=== PATIENT | female | born 1940 | race Caucasian/White ===

== ENCOUNTER 2017-10-24 08:11 | Inpatient (IN) | payer MEDICARE ==
[2017-10-23 12:34] VITALS: BMI 25.0
[2017-10-24] MEDS ORDERED: Midazolam 2 MG/2 ML VIAL ONE (09:58)
[2017-10-24] MEDS ORDERED: Iodixanol 320 MG/ML 100 ML BOTTLE IV ONE (09:59)
[2017-10-24] MEDS ORDERED: DOPamine 400mg/250ml D5W 400 MG/250 ML BAG IV ONE (11:37)
[2017-10-24] MEDS ORDERED: Sodium Chloride 0.9% 1,000 ML IV SCH (11:45)
[2017-10-24] MEDS ORDERED: DOPamine 400mg/250ml D5W 400 MG/250 ML BAG IV PRN (12:00)
[2017-10-24] MEDS: (Novolin R) Insulin Human Regular 100 units/ml vial SC SCH ×2 (17:35→22:00)
[2017-10-24] MEDS ORDERED: Sodium Chloride 0.9% 1,000 ML IV ONE (20:09)
--- NOTE | 2017-10-24 20:24 | CP.PCM.HP ---
History of Present Illness - History of Present Illness History of Present Illness: CC: low BP 77 y/o female with HTN, NIDDM, all rhinitis. Patient had cardiac cath and became bradycardic/ hypotensive (SBP 70's). Patient admitted c/o persistent Bradycardia. Present on Admission - Present on Admission Any Indicators Present on Admission: Yes History of DVT/PE: No History of Uncontrolled Diabetes: No Urinary Catheter: No Review of Systems - Review of Systems Systems not reviewed;Unavailable: Acuity of Condition - Constitutional Constitutional: absent: Headache - EENT Eyes: absent: Blurred Vision, Loss of Peripheral Vision, Requires Corrective Lenses, Sees Flashes, Loss of Vision Ears: absent: Ear Discharge Nose/Mouth/Throat: Nasal Congestion, Post Nasal Drip. absent: Change in Voice, Dysphagia, Halitosis, Hoarsness, Sore Throat - Cardiovascular Cardiovascular: Dyspnea on Exertion, Slow Heart Rate. absent: Chest Pain, Diaphoresis, Edema, Leg Edema, Orthopnea, Palpitations, Pedal Edema, Radiating Pain - Respiratory Respiratory: absent: Cough, Dyspnea, Hemoptysis, Chest Congestion, Pain with Coughing - Gastrointestinal Gastrointestinal: absent: Abdominal Pain, Coffee Ground Emesis, Dyspepsia, Loose Stools, Nausea, Vomiting - Musculoskeletal Musculoskeletal: Abnormal Gait. absent: Atrophy, Back Pain, Loss of Height, Numbness Past Patient History - Infectious Disease Hx of Infectious Diseases: None - Past Medical History & Family History Past Medical History?: Yes - Past Social History Smoking Status: Never Smoked - CARDIAC Hx Cardiac Disorders: Yes Hx Angina: Yes Hx Hypercholesterolemia: Yes Hx Hypertension: Yes - PULMONARY Hx Respiratory Disorders: No - NEUROLOGICAL Hx Neurological Disorder: No - HEENT Hx HEENT Problems: Yes Hx Cataracts: Yes - RENAL Hx Chronic Kidney Disease: No - ENDOCRINE/METABOLIC Hx Endocrine Disorders: Yes Hx Diabetes Mellitus Type 2: Yes - HEMATOLOGICAL/ONCOLOGICAL Hx Blood Disorders: Yes Other/Comment: PT STATES HX BLEEDING AFTER LAST CARDIAC CATH - INTEGUMENTARY Hx Dermatological Problems: No - MUSCULOSKELETAL/RHEUMATOLOGICAL Hx Arthritis: Yes Hx Falls: No Hx Gout: Yes - GASTROINTESTINAL Hx Gastrointestinal Disorders: No - GENITOURINARY/GYNECOLOGICAL Hx Genitourinary Disorders: No - PSYCHIATRIC Hx Psychophysiologic Disorder: No - SURGICAL HISTORY Hx Surgeries: Yes Hx Cardiac Catheterization: Yes (1997) - ANESTHESIA Hx Anesthesia: Yes Hx Anesthesia Reactions: No Hx Malignant Hyperthermia: No Meds Allergies/Adverse Reactions: Allergies Allergy/AdvReac Type Severity Reaction Status Date / Time No Known Allergies Allergy Verified 10/23/17 12:31 Physical Exam - Constitutional Appears: No Acute Distress - Eye Exam Eye Exam: Normal appearance - ENT Exam ENT Exam: Mucous Membranes Moist - Neck Exam Neck exam: Negative for: Full Rom, Lymphadenopathy, Normal Inspection - Respiratory Exam Respiratory Exam: Clear to Auscultation Bilateral. absent: Rales, Rhonchi, Wheezes - Cardiovascular Exam Cardiovascular Exam: REGULAR RHYTHM, +S1, +S2. absent: Gallop, JVD, Rubs - GI/Abdominal Exam GI & Abdominal Exam: Soft. absent: Pulsatile Mass, Tenderness - Extremities Exam Extremities exam: Positive for: calf tenderness, full ROM, normal capillary refill. Negative for: joint swelling, pedal edema Results - Vital Signs Recent Vital Signs: Last Vital Signs Temp Pulse 54 L 10/24/17 14:00 Resp 12 10/24/17 14:00 BP 133/52 L 10/24/17 14:00 Pulse Ox 100 10/24/17 14:00 - Labs Labs: Laboratory Results - last 24 hr 10/24/17 17:28 POC Glucose (mg/dL) 157 H Assessment & Plan - Assessment and Plan (Free Text) Assessment: Bradycardia w/ hypotension CAD, NIDDM On ICU monitoring, check labs Supportive care
[2017-10-25 06:31] LABS: HEMOGLOBIN 9.8 g/dL (11.0-16.0); MEAN CELL VOLUME 87.3 fL (81.0-99.0); MEAN CORPUSCULAR HEMOGLOBIN 29.9 pg (27.0-31.0); MEAN CORPUSCULAR HGB CONC 34.3 g/dL (33.0-37.0); MEAN PLATELET VOLUME 9.9 fL (7.2-11.7); RBC 3.28 Mil/uL (3.80-5.20); RED CELL DISTRIBUTION WIDTH 14.3 % (11.5-14.5); WHITE BLOOD COUNT 9.8 K/uL (4.8-10.8)
[2017-10-25 07:04] LABS: ALBUMIN 3.8 g/dL (3.5-5.0); CALCIUM 9.5 mg/dl (8.6-10.4); MAGNESIUM 2.3 mg/dL (1.6-2.3)
[2017-10-25] MEDS: (Novolin R) Insulin Human Regular 100 units/ml vial SC SCH ×4 (08:18→21:44)
[2017-10-25] MEDS: Enoxaparin 30 mg Syringe SC SCH (10:08)
--- NOTE | 2017-10-25 14:30 | CP.PCM.PN ---
Subjective - Date & Time of Evaluation Date of Evaluation: 10/25/17 Time of Evaluation: 14:27 - Subjective Subjective: S: Feels better. NO fever. Objective - Vital Signs/Intake and Output Vital Signs (last 24 hours): Temp Pulse Resp BP Pulse Ox 98.2 F 36 L 14 166/78 H 100 10/24/17 19:00 10/25/17 08:03 10/25/17 08:03 10/25/17 08:03 10/25/17 08:03 Intake and Output: 10/25/17 10/25/17 06:59 18:59 Intake Total 1580 190 Output Total 1300 300 Balance 280 -110 - Medications Medications: Current Medications Enoxaparin Sodium (Lovenox) 30 mg SC DAILY [facility] Last Admin: 10/25/17 10:08 Dose: 30 mg Famotidine (Pepcid) 20 mg PO DAILY [facility] Last Admin: 10/25/17 10:08 Dose: 20 mg Insulin Human Regular (Novolin R) 0 unit SC ACHS [facility] PRN Reason: Protocol Last Admin: 10/25/17 12:14 Dose: Not Given - Labs Labs: 10/25/17 06:21 10/25/17 06:22 - Constitutional Appears: Non-toxic - Head Exam Head Exam: NORMAL INSPECTION - Eye Exam Eye Exam: Normal appearance - ENT Exam ENT Exam: Mucous Membranes Dry - Neck Exam Neck Exam: Normal Inspection - Respiratory Exam Respiratory Exam: NORMAL BREATHING PATTERN - Cardiovascular Exam Cardiovascular Exam: REGULAR RHYTHM - GI/Abdominal Exam GI & Abdominal Exam: Soft - Rectal Exam Rectal Exam: Deferred - Extremities Exam Extremities Exam: Normal Inspection - Neurological Exam Neurological Exam: Alert Assessment and Plan (1) Bradycardia Status: Acute (2) CAD (coronary artery disease) Status: Acute (3) Diabetes Status: Chronic (4) HTN (hypertension) Status: Chronic - Assessment and Plan (Free Text) Assessment: A/p: Spoke with Dr. Baugh for pacemaker insertion. Continue medications.
--- NOTE | 2017-10-26 05:39 | CARDCATH ---
PROCEDURE DATE: 10/24/2017 PROCEDURES: 1. Left heart catheterization. 2. Coronary angiogram. CLINICAL INDICATIONS: 1. Chest pain. 2. Abnormal stress test. 3. Symptomatic bradycardia. 4. Dizziness. 5. Hypertension. REFERRING PHYSICIAN: Richard Quiroz MD PERFORMING PHYSICIAN: Kiel Baugh MD PROCEDURE: After informed consent, the patient was prepped and draped in the usual sterile fashion. A 2% lidocaine was given in the right groin for local anesthesia. Using micropuncture technique, a 6-Guamanian sheath was introduced into right common femoral artery. A 6-Guamanian JL4 diagnostic catheter engaged into left main coronary artery. Contrast injected and left coronary angiogram was performed. JR4 6-Guamanian diagnostic catheter crossed into left ventricle across the aortic valve. LV end-diastolic pressure measured. Contrast injected and LV angiogram was performed. The catheter was pulled back across the aortic valve. Gradient across the aortic valve was measured. Therefore, diagnostic catheter engaged in the right coronary artery. Contrast injected and right coronary angiogram was performed. Radiological supervision and radiological interpretation of the left heart catheterization and coronary angiogram was done. The patient tolerated the procedure well. FINDINGS: 1. Left main coronary artery is patent. 2. Proximal, distal LAD, and diagonal branches are patent. 3. Mid LAD has a nonobstructive 50% stenosis. 4. Proximal circumflex has a 60% nonocclusive stenosis. Distal circumflex in the obtuse marginal branches are patent. 5. Right coronary artery is dominant and patent. 6. Proximal right coronary artery has a 40% stenosis. 7. LV ejection fraction is approximately 60%. No wall motion abnormalities noted. EDP is 14. ASSESSMENT: 1. Nonobstructive coronaries. 2. Normal LV systolic function. RECOMMENDATIONS: Pacemaker evaluation for severe bradycardia. Kiel Baugh MD
[2017-10-26 06:35] LABS: BASO # 0.1 K/uL (0.0-0.2); BASO % 1.1 % (0.0-2.0); EOS # 0.3 K/uL (0.0-0.7); EOS % 4.1 % (0.0-4.0); LYMPH # 1.3 K/uL (1.0-4.3); LYMPH % 16.9 % (20.0-40.0); MEAN CORPUSCULAR HEMOGLOBIN 29.7 pg (27.0-31.0); MEAN CORPUSCULAR HGB CONC 34.1 g/dL (33.0-37.0); MEAN PLATELET VOLUME 10.1 fL (7.2-11.7); MONO # 0.5 K/uL (0.0-0.8); MONO % 6.5 % (0.0-10.0); NEUT # 5.6 K/uL (1.8-7.0); NEUT % 71.4 % (50.0-75.0); RBC 3.39 Mil/uL (3.80-5.20); RED CELL DISTRIBUTION WIDTH 14.6 % (11.5-14.5); WHITE BLOOD COUNT 7.9 K/uL (4.8-10.8)
[2017-10-26 06:43] LABS: ALBUMIN 3.6 g/dL (3.5-5.0); CALCIUM 9.2 mg/dl (8.6-10.4); MAGNESIUM 2.2 mg/dL (1.6-2.3)
--- NOTE | 2017-10-26 09:54 | CP.PCM.PN ---
Subjective - Date & Time of Evaluation Date of Evaluation: 10/26/17 Time of Evaluation: 09:51 - Subjective Subjective: Chart reviewed Objective - Vital Signs/Intake and Output Vital Signs (last 24 hours): Temp Pulse Resp BP Pulse Ox 98.6 F 39 L 15 160/40 H 100 10/26/17 08:00 10/26/17 08:03 10/26/17 08:03 10/26/17 08:03 10/26/17 08:03 Intake and Output: 10/26/17 10/26/17 06:59 18:59 Intake Total 100 Output Total 750 Balance -650 - Medications Medications: Current Medications Enoxaparin Sodium (Lovenox) 30 mg SC DAILY [facility] Last Admin: 10/25/17 10:08 Dose: 30 mg Famotidine (Pepcid) 20 mg PO DAILY [facility] Last Admin: 10/25/17 10:08 Dose: 20 mg Insulin Human Regular (Novolin R) 0 unit SC ACHS [facility] PRN Reason: Protocol Last Admin: 10/25/17 21:44 Dose: Not Given - Labs Labs: 10/26/17 06:21 10/26/17 06:21 Assessment and Plan - Assessment and Plan (Free Text) Assessment: This patient has had symptomatic episodes of bradyarrhythmia likely sinus There are no obvious clinical reversible factors Currently without hemodynamic instability In absnece of an imperative to use an AV enriqueta magalie (heart failure or coronary disease) indicatins would be directed by symptoms persistence of severe bradycardia during wake hours Plan Thyroid function Monitor x 24 hours Possible Pacemaker tomorrow if indications remain
[2017-10-26] MEDS: (Novolin R) Insulin Human Regular 100 units/ml vial SC SCH ×4 (10:13→22:16)
[2017-10-26] MEDS: Enoxaparin 30 mg Syringe SC SCH (10:15)
--- NOTE | 2017-10-26 11:08 | CP.PCM.PN ---
Subjective - Date & Time of Evaluation Date of Evaluation: 10/26/17 Time of Evaluation: 11:06 - Subjective Subjective: S: Feels ave. No fever. Objective - Vital Signs/Intake and Output Vital Signs (last 24 hours): Temp Pulse Resp BP Pulse Ox 98.6 F 42 L 19 163/47 H 100 10/26/17 08:00 10/26/17 10:16 10/26/17 10:16 10/26/17 10:16 10/26/17 10:16 Intake and Output: 10/26/17 10/26/17 06:59 18:59 Intake Total 100 200 Output Total 750 400 Balance -650 -200 - Medications Medications: Current Medications Enoxaparin Sodium (Lovenox) 30 mg SC DAILY [facility] Last Admin: 10/26/17 10:15 Dose: 30 mg Famotidine (Pepcid) 20 mg PO DAILY [facility] Last Admin: 10/26/17 10:15 Dose: 20 mg Insulin Human Regular (Novolin R) 0 unit SC ACHS [facility] PRN Reason: Protocol Last Admin: 10/26/17 10:13 Dose: Not Given - Labs Labs: 10/26/17 06:21 10/26/17 06:21 - Constitutional Appears: No Acute Distress - Head Exam Head Exam: NORMAL INSPECTION - Eye Exam Eye Exam: Normal appearance - ENT Exam ENT Exam: Normal Exam - Neck Exam Neck Exam: Normal Inspection - Respiratory Exam Respiratory Exam: NORMAL BREATHING PATTERN - Cardiovascular Exam Cardiovascular Exam: REGULAR RHYTHM - GI/Abdominal Exam GI & Abdominal Exam: Soft - Rectal Exam Rectal Exam: Deferred - Extremities Exam Extremities Exam: absent: Pedal Edema - Neurological Exam Neurological Exam: Alert Assessment and Plan (1) Bradycardia Status: Acute (2) CAD (coronary artery disease) Status: Acute (3) Diabetes Status: Chronic (4) HTN (hypertension) Status: Chronic - Assessment and Plan (Free Text) Assessment: A/P: Continue medications. For pacemaker insertion tomorrow
--- NOTE | 2017-10-26 23:10 | CP.PCM.PN ---
Subjective - Date & Time of Evaluation Date of Evaluation: 10/26/17 Time of Evaluation: 19:50 - Subjective Subjective: Patient seen and evaluated Persistent symptomtic bradycardia with no reversible causes Due to CAD patient may likely need b blockers in the near future Dr. Cheek likely to do PPM tomorrow Objective - Vital Signs/Intake and Output Vital Signs (last 24 hours): Temp Pulse Resp BP Pulse Ox 98.9 F 41 L 21 169/52 H 97 10/26/17 20:00 10/26/17 21:00 10/26/17 21:00 10/26/17 21:03 10/26/17 21:00 Intake and Output: 10/26/17 10/27/17 18:59 06:59 Intake Total 400 Output Total 700 Balance -300 - Medications Medications: Current Medications Enoxaparin Sodium (Lovenox) 30 mg SC DAILY [facility] Last Admin: 10/26/17 10:15 Dose: 30 mg Famotidine (Pepcid) 20 mg PO DAILY [facility] Last Admin: 10/26/17 10:15 Dose: 20 mg Insulin Human Regular (Novolin R) 0 unit SC [facility] PRN Reason: Protocol Last Admin: 10/26/17 22:16 Dose: Not Given - Labs Labs: 10/26/17 06:21 10/26/17 06:21
[2017-10-27 06:28] LABS: PROTHROMBIN TIME 10.9 SECONDS (9.7-12.2)
[2017-10-27 06:33] LABS: BASO # 0.1 K/uL (0.0-0.2); BASO % 1.4 % (0.0-2.0); EOS # 0.4 K/uL (0.0-0.7); EOS % 4.2 % (0.0-4.0); HEMOGLOBIN 9.4 g/dL (11.0-16.0); LYMPH # 1.4 K/uL (1.0-4.3); LYMPH % 13.8 % (20.0-40.0); MEAN CELL VOLUME 87.7 fL (81.0-99.0); MEAN CORPUSCULAR HEMOGLOBIN 29.7 pg (27.0-31.0); MEAN CORPUSCULAR HGB CONC 33.8 g/dL (33.0-37.0); MEAN PLATELET VOLUME 10.4 fL (7.2-11.7); MONO # 0.8 K/uL (0.0-0.8); MONO % 7.8 % (0.0-10.0); NEUT # 7.3 K/uL (1.8-7.0); NEUT % 72.8 % (50.0-75.0); NRBC % 0.1 % (0.0-2.0); RBC 3.16 Mil/uL (3.80-5.20); RED CELL DISTRIBUTION WIDTH 14.5 % (11.5-14.5)
[2017-10-27 06:38] LABS: ALBUMIN 3.6 g/dL (3.5-5.0); CALCIUM 9.2 mg/dl (8.6-10.4)
[2017-10-27] MEDS: (Novolin R) Insulin Human Regular 100 units/ml vial SC SCH ×5 (07:30→21:13)
--- NOTE | 2017-10-27 09:08 | CP.PCM.PN ---
Subjective - Date & Time of Evaluation Date of Evaluation: 10/27/17 Time of Evaluation: 08:25 - Subjective Subjective: Pt no CP,no SOB, no edema, co cough; HR at low 40's but in bed all the time Objective - Vital Signs/Intake and Output Vital Signs (last 24 hours): Temp Pulse Resp BP Pulse Ox 97.6 F 39 L 14 171/61 H 100 10/27/17 08:00 10/27/17 08:02 10/27/17 08:02 10/27/17 08:02 10/27/17 08:02 Intake and Output: 10/27/17 10/27/17 06:59 18:59 Intake Total 240 Output Total 600 Balance -360 - Medications Medications: Current Medications Enoxaparin Sodium (Lovenox) 30 mg SC DAILY [facility] Last Admin: 10/26/17 10:15 Dose: 30 mg Famotidine (Pepcid) 20 mg PO DAILY [facility] Last Admin: 10/26/17 10:15 Dose: 20 mg Insulin Human Regular (Novolin R) 0 unit SC ACHS [facility] PRN Reason: Protocol Last Admin: 10/26/17 22:16 Dose: Not Given - Labs Labs: 10/27/17 06:17 10/27/17 06:13 PT 10.9 SECONDS (9.7-12.2) 10/27/17 06:17 INR 1.0 10/27/17 06:17 APTT 35 SECONDS (21-34) H 10/27/17 06:17 - Constitutional Appears: No Acute Distress - Eye Exam Eye Exam: Normal appearance - ENT Exam ENT Exam: Mucous Membranes Moist - Neck Exam Neck Exam: Full ROM. absent: Lymphadenopathy - Respiratory Exam Respiratory Exam: Clear to Ausculation Bilateral. absent: Rales, Rhonchi, Wheezes - Cardiovascular Exam Cardiovascular Exam: +S1, +S2. absent: Gallop, REGULAR RHYTHM - GI/Abdominal Exam GI & Abdominal Exam: Soft. absent: Tenderness - Extremities Exam Extremities Exam: absent: Calf Tenderness, Joint Swelling, Pedal Edema Assessment and Plan - Assessment and Plan (Free Text) Assessment: HTN, NIDDM, Bradycardia For pacemaker placement Cont supportive care
[2017-10-27] MEDS: Enoxaparin 30 mg Syringe SC SCH (10:18)
--- NOTE | 2017-10-27 11:52 | CP.CCUPN ---
<Parvez Serrano - Last Filed: 10/27/17 17:29> CCU Subjective - Physician Review Events Since Last Encounter (Free Text): 10/27/17 11:45 Patient seen and examined at bedside. Per nursing no acute events occurred overnight. Critical Care Time Spent (in minutes): 45 CCU Objective - Vital Signs / Intake & Output Vital Signs (Last 4 hours): Vital Signs Temp Pulse Resp BP Pulse Ox 10/27/17 08:02 39 L 14 171/61 H 100 10/27/17 08:00 97.6 F 40 L 18 162/70 H 100 Intake and Output (Last 8hrs): Intake & Output 10/26/17 10/27/17 10/27/17 22:59 06:59 14:59 Intake Total 440 Output Total 400 400 Balance 40 -400 Weight 133 lb 7 oz Intake: Oral 440 Output: Urine 400 400 Urine, Voided 400 400 Other: # Bowel Movements 0 1 - Physical Exam Head: Positive for: Atraumatic, Normocephalic Pupils: Positive for: PERRL Extroacular Muscles: Positive for: EOMI Conjunctiva: Positive for: Normal Respiratory/Chest: Positive for: Clear to Auscultation, Good Air Exchange Cardiovascular: Positive for: Regular Rate and Rhythm, Normal S1, S2 Abdomen: Positive for: Normal Bowel Sounds Upper Extremity: Positive for: Normal Inspection Lower Extremity: Positive for: Normal Inspection Neurological: Positive for: CN II-XII Intact Skin: Positive for: Dry, Normal Color Psychiatric: Positive for: Alert, Normal Concentration - Medications Active Medications: Active Medications Generic Name Dose Route Start Last Admin Trade Name Dorinda PRN Reason Stop Dose Admin Enoxaparin Sodium 30 mg 10/25/17 10:00 10/27/17 10:18 Lovenox SC Not Given DAILY [facility] Insulin Human Regular 0 unit 10/24/17 16:30 10/27/17 07:30 Novolin R SC Not Given [facility] Protocol Pantoprazole Sodium 40 mg 10/27/17 10:00 Protonix Inj IVP DAILY [facility] - Patient Studies Lab Studies: Microbiology Studies 10/24/17 20:08 MRSA Culture (Admit) - Final [facility] Lab Studies 10/27/17 10/27/17 10/27/17 Range/Units 06:17 06:17 06:13 WBC 10.0 (4.8-10.8) K/uL RBC 3.16 L (3.80-5.20) Mil/uL Hgb 9.4 L (11.0-16.0) g/dL Hct 27.7 L (34.0-47.0) % MCV 87.7 (81.0-99.0) fL MCH 29.7 (27.0-31.0) pg MCHC 33.8 (33.0-37.0) g/dL RDW 14.5 (11.5-14.5) % Plt Count 351 (130-400) K/uL MPV 10.4 (7.2-11.7) fL Neut % (Auto) 72.8 (50.0-75.0) % Lymph % (Auto) 13.8 L (20.0-40.0) % [place] % (Auto) 7.8 (0.0-10.0) % Eos % (Auto) 4.2 H (0.0-4.0) % Baso % (Auto) 1.4 (0.0-2.0) % Neut # (Auto) 7.3 H (1.8-7.0) K/uL Lymph # (Auto) 1.4 (1.0-4.3) K/uL [place] # (Auto) 0.8 (0.0-0.8) K/uL Eos # (Auto) 0.4 (0.0-0.7) K/uL Baso # (Auto) 0.1 (0.0-0.2) K/uL PT 10.9 (9.7-12.2) SECONDS INR 1.0 APTT 35 H (21-34) SECONDS Sodium 139 (132-148) mmol/L Potassium 4.3 (3.6-5.2) mmol/L Chloride 103 (98-107) mmol/L Carbon Dioxide 25 (22-30) mmol/L Anion Gap 16 (10-20) BUN 59 H (7-17) mg/dL Creatinine 1.4 H (0.7-1.2) mg/dL Est GFR ( Amer) 44 Est GFR (Non-Af Amer) 36 POC Glucose (mg/dL) (65-110) mg/dL Random Glucose 124 H (65-105) mg/dL Calcium 9.2 (8.6-10.4) mg/dl Total Bilirubin 0.4 (0.2-1.3) mg/dL AST 24 (14-36) U/L ALT 21 (9-52) U/L Alkaline Phosphatase 52 (38-126) U/L Total Protein 7.4 (6.3-8.3) g/dL Albumin 3.6 (3.5-5.0) g/dL Globulin 3.8 (2.2-3.9) gm/dL Albumin/Globulin Ratio 1.0 (1.0-2.1) 10/26/17 10/26/17 10/26/17 Range/Units 21:28 16:28 11:50 WBC (4.8-10.8) K/uL RBC (3.80-5.20) Mil/uL Hgb (11.0-16.0) g/dL Hct (34.0-47.0) % MCV (81.0-99.0) fL MCH (27.0-31.0) pg MCHC (33.0-37.0) g/dL RDW (11.5-14.5) % Plt Count (130-400) K/uL MPV (7.2-11.7) fL Neut % (Auto) (50.0-75.0) % Lymph % (Auto) (20.0-40.0) % [place] % (Auto) (0.0-10.0) % Eos % (Auto) (0.0-4.0) % Baso % (Auto) (0.0-2.0) % Neut # (Auto) (1.8-7.0) K/uL Lymph # (Auto) (1.0-4.3) K/uL [place] # (Auto) (0.0-0.8) K/uL Eos # (Auto) (0.0-0.7) K/uL Baso # (Auto) (0.0-0.2) K/uL PT (9.7-12.2) SECONDS INR APTT (21-34) SECONDS Sodium (132-148) mmol/L Potassium (3.6-5.2) mmol/L Chloride (98-107) mmol/L Carbon Dioxide (22-30) mmol/L Anion Gap (10-20) BUN (7-17) mg/dL Creatinine (0.7-1.2) mg/dL Est GFR ( Amer) Est GFR (Non-Af Amer) POC Glucose (mg/dL) 192 H 105 137 H (65-110) mg/dL Random Glucose (65-105) mg/dL Calcium (8.6-10.4) mg/dl Total Bilirubin (0.2-1.3) mg/dL AST (14-36) U/L ALT (9-52) U/L Alkaline Phosphatase (38-126) U/L Total Protein (6.3-8.3) g/dL Albumin (3.5-5.0) g/dL Globulin (2.2-3.9) gm/dL Albumin/Globulin Ratio (1.0-2.1) 10/26/17 Range/Units 07:21 WBC (4.8-10.8) K/uL RBC (3.80-5.20) Mil/uL Hgb (11.0-16.0) g/dL Hct (34.0-47.0) % MCV (81.0-99.0) fL MCH (27.0-31.0) pg MCHC (33.0-37.0) g/dL RDW (11.5-14.5) % Plt Count (130-400) K/uL MPV (7.2-11.7) fL Neut % (Auto) (50.0-75.0) % Lymph % (Auto) (20.0-40.0) % [place] % (Auto) (0.0-10.0) % Eos % (Auto) (0.0-4.0) % Baso % (Auto) (0.0-2.0) % Neut # (Auto) (1.8-7.0) K/uL Lymph # (Auto) (1.0-4.3) K/uL [place] # (Auto) (0.0-0.8) K/uL Eos # (Auto) (0.0-0.7) K/uL Baso # (Auto) (0.0-0.2) K/uL PT (9.7-12.2) SECONDS INR APTT (21-34) SECONDS Sodium (132-148) mmol/L Potassium (3.6-5.2) mmol/L Chloride (98-107) mmol/L Carbon Dioxide (22-30) mmol/L Anion Gap (10-20) BUN (7-17) mg/dL Creatinine (0.7-1.2) mg/dL Est GFR ( Amer) Est GFR (Non-Af Amer) POC Glucose (mg/dL) 118 H (65-110) mg/dL Random Glucose (65-105) mg/dL Calcium (8.6-10.4) mg/dl Total Bilirubin (0.2-1.3) mg/dL AST (14-36) U/L ALT (9-52) U/L Alkaline Phosphatase (38-126) U/L Total Protein (6.3-8.3) g/dL Albumin (3.5-5.0) g/dL Globulin (2.2-3.9) gm/dL Albumin/Globulin Ratio (1.0-2.1) Laboratory Results - last 24 hr 10/26/17 10/26/17 10/26/17 07:21 11:50 16:28 WBC RBC Hgb Hct MCV MCH MCHC RDW Plt Count MPV Neut % (Auto) Lymph % (Auto) [place] % (Auto) Eos % (Auto) Baso % (Auto) Neut # (Auto) Lymph # (Auto) [place] # (Auto) Eos # (Auto) Baso # (Auto) PT INR APTT Sodium Potassium Chloride Carbon Dioxide Anion Gap BUN Creatinine Est GFR ( Amer) Est GFR (Non-Af Amer) POC Glucose (mg/dL) 118 H 137 H 105 Random Glucose Calcium Total Bilirubin AST ALT Alkaline Phosphatase Total Protein Albumin Globulin Albumin/Globulin Ratio 10/26/17 10/27/17 10/27/17 21:28 06:13 06:17 WBC 10.0 RBC 3.16 L Hgb 9.4 L Hct 27.7 L MCV 87.7 MCH 29.7 MCHC 33.8 RDW 14.5 Plt Count 351 MPV 10.4 Neut % (Auto) 72.8 Lymph % (Auto) 13.8 L [place] % (Auto) 7.8 Eos % (Auto) 4.2 H Baso % (Auto) 1.4 Neut # (Auto) 7.3 H Lymph # (Auto) 1.4 [place] # (Auto) 0.8 Eos # (Auto) 0.4 Baso # (Auto) 0.1 PT INR APTT Sodium 139 Potassium 4.3 Chloride 103 Carbon Dioxide 25 Anion Gap 16 BUN 59 H Creatinine 1.4 H Est GFR ( Amer) 44 Est GFR (Non-Af Amer) 36 POC Glucose (mg/dL) 192 H Random Glucose 124 H Calcium 9.2 Total Bilirubin 0.4 AST 24 ALT 21 Alkaline Phosphatase 52 Total Protein 7.4 Albumin 3.6 Globulin 3.8 Albumin/Globulin Ratio 1.0 10/27/17 06:17 WBC RBC Hgb Hct MCV MCH MCHC RDW Plt Count MPV Neut % (Auto) Lymph % (Auto) [place] % (Auto) Eos % (Auto) Baso % (Auto) Neut # (Auto) Lymph # (Auto) [place] # (Auto) Eos # (Auto) Baso # (Auto) PT 10.9 INR 1.0 APTT 35 H Sodium Potassium Chloride Carbon Dioxide Anion Gap BUN Creatinine Est GFR ( Amer) Est GFR (Non-Af Amer) POC Glucose (mg/dL) Random Glucose Calcium Total Bilirubin AST ALT Alkaline Phosphatase Total Protein Albumin Globulin Albumin/Globulin Ratio EKG/Cardiology Studies: Cardiology / EKG Studies 10/27/17 10:44 EKG [ELECTROCARDIOGRAM] Stat Comment: Mode Of Transportation: Reason For Exam: bradycardic Isolation: Contact Fingerstick Blood Sugar Results: 129 Critical Care Progress Note - Nutrition Nutrition: Nutrition Category Date Time Status NPO Diet [DIET] Diets 10/27/17 Lunch Active Assessment/Plan - Assessment and Plan (Free Text) Assessment: 77 year old female with a past medical hisotry of hypertension, cataracts, type 2 dm, arthritis, and cad who is admitted for bradycardia. Plan: -Pacemaker today -ISS -Accuchecks ACHS -EKG stat. will f/u with results. -CXR ordered .Will f/u with results. -Cardiology following. <Tracy Eng - Last Filed: 10/27/17 19:39> CCU Objective - Vital Signs / Intake & Output Vital Signs (Last 4 hours): Vital Signs Temp Pulse Resp BP Pulse Ox 10/27/17 18:00 98.7 F 45 L 18 160/58 H 99 10/27/17 17:03 47 L 20 162/52 H 100 10/27/17 17:00 47 L 16 100 10/27/17 16:02 47 L 18 175/54 H 100 10/27/17 16:00 97.9 F 97 H 20 162/60 H 97 Intake and Output (Last 8hrs): Intake & Output 10/27/17 10/27/17 10/27/17 06:59 14:59 22:59 Intake Total 840 Output Total 400 250 200 Balance -400 590 -200 Weight 133 lb 7 oz Intake: Oral 840 Output: Urine 400 250 200 Urine, Voided 400 250 200 Other: # Bowel Movements 1 - Medications Active Medications: Active Medications Generic Name Dose Route Start Last Admin Trade Name Freq PRN Reason Stop Dose Admin Enoxaparin Sodium 30 mg 10/25/17 10:00 10/27/17 10:18 Lovenox SC Not Given DAILY [facility] Hydromorphone HCl 0.5 mg 10/27/17 19:29 Dilaudid IVP 10/27/17 21:30 Q15M PRN Pain, moderate (4-7) Insulin Human Regular 0 unit 10/24/17 16:30 10/27/17 16:29 Novolin R SC Not Given ACHS [facility] Protocol Pantoprazole Sodium 40 mg 10/27/17 10:00 10/27/17 10:00 Protonix Inj IVP 40 mg DAILY [facility] Administration - Patient Studies Lab Studies: Lab Studies 10/27/17 10/27/17 10/27/17 Range/Units 16:15 11:41 06:17 WBC (4.8-10.8) K/uL RBC (3.80-5.20) Mil/uL Hgb (11.0-16.0) g/dL Hct (34.0-47.0) % MCV (81.0-99.0) fL MCH (27.0-31.0) pg MCHC (33.0-37.0) g/dL RDW (11.5-14.5) % Plt Count (130-400) K/uL MPV (7.2-11.7) fL Neut % (Auto) (50.0-75.0) % Lymph % (Auto) (20.0-40.0) % [place] % (Auto) (0.0-10.0) % Eos % (Auto) (0.0-4.0) % Baso % (Auto) (0.0-2.0) % Neut # (Auto) (1.8-7.0) K/uL Lymph # (Auto) (1.0-4.3) K/uL [place] # (Auto) (0.0-0.8) K/uL Eos # (Auto) (0.0-0.7) K/uL Baso # (Auto) (0.0-0.2) K/uL PT 10.9 (9.7-12.2) SECONDS INR 1.0 APTT 35 H (21-34) SECONDS Sodium (132-148) mmol/L Potassium (3.6-5.2) mmol/L Chloride (98-107) mmol/L Carbon Dioxide (22-30) mmol/L Anion Gap (10-20) BUN (7-17) mg/dL Creatinine (0.7-1.2) mg/dL Est GFR ( Amer) Est GFR (Non-Af Amer) POC Glucose (mg/dL) 95 178 H (65-110) mg/dL Random Glucose (65-105) mg/dL Calcium (8.6-10.4) mg/dl Total Bilirubin (0.2-1.3) mg/dL AST (14-36) U/L ALT (9-52) U/L Alkaline Phosphatase (38-126) U/L Total Protein (6.3-8.3) g/dL Albumin (3.5-5.0) g/dL Globulin (2.2-3.9) gm/dL Albumin/Globulin Ratio (1.0-2.1) 10/27/17 10/27/17 10/26/17 Range/Units 06:17 06:13 21:28 WBC 10.0 (4.8-10.8) K/uL RBC 3.16 L (3.80-5.20) Mil/uL Hgb 9.4 L (11.0-16.0) g/dL Hct 27.7 L (34.0-47.0) % MCV 87.7 (81.0-99.0) fL MCH 29.7 (27.0-31.0) pg MCHC 33.8 (33.0-37.0) g/dL RDW 14.5 (11.5-14.5) % Plt Count 351 (130-400) K/uL MPV 10.4 (7.2-11.7) fL Neut % (Auto) 72.8 (50.0-75.0) % Lymph % (Auto) 13.8 L (20.0-40.0) % [place] % (Auto) 7.8 (0.0-10.0) % Eos % (Auto) 4.2 H (0.0-4.0) % Baso % (Auto) 1.4 (0.0-2.0) % Neut # (Auto) 7.3 H (1.8-7.0) K/uL Lymph # (Auto) 1.4 (1.0-4.3) K/uL [place] # (Auto) 0.8 (0.0-0.8) K/uL Eos # (Auto) 0.4 (0.0-0.7) K/uL Baso # (Auto) 0.1 (0.0-0.2) K/uL PT (9.7-12.2) SECONDS INR APTT (21-34) SECONDS Sodium 139 (132-148) mmol/L Potassium 4.3 (3.6-5.2) mmol/L Chloride 103 (98-107) mmol/L Carbon Dioxide 25 (22-30) mmol/L Anion Gap 16 (10-20) BUN 59 H (7-17) mg/dL Creatinine 1.4 H (0.7-1.2) mg/dL Est GFR ( Amer) 44 Est GFR (Non-Af Amer) 36 POC Glucose (mg/dL) 192 H (65-110) mg/dL Random Glucose 124 H (65-105) mg/dL Calcium 9.2 (8.6-10.4) mg/dl Total Bilirubin 0.4 (0.2-1.3) mg/dL AST 24 (14-36) U/L ALT 21 (9-52) U/L Alkaline Phosphatase 52 (38-126) U/L Total Protein 7.4 (6.3-8.3) g/dL Albumin 3.6 (3.5-5.0) g/dL Globulin 3.8 (2.2-3.9) gm/dL Albumin/Globulin Ratio 1.0 (1.0-2.1) Laboratory Results - last 24 hr 10/26/17 10/27/17 10/27/17 21:28 06:13 06:17 WBC 10.0 RBC 3.16 L Hgb 9.4 L Hct 27.7 L MCV 87.7 MCH 29.7 MCHC 33.8 RDW 14.5 Plt Count 351 MPV 10.4 Neut % (Auto) 72.8 Lymph % (Auto) 13.8 L [place] % (Auto) 7.8 Eos % (Auto) 4.2 H Baso % (Auto) 1.4 Neut # (Auto) 7.3 H Lymph # (Auto) 1.4 [place] # (Auto) 0.8 Eos # (Auto) 0.4 Baso # (Auto) 0.1 PT INR APTT Sodium 139 Potassium 4.3 Chloride 103 Carbon Dioxide 25 Anion Gap 16 BUN 59 H Creatinine 1.4 H Est GFR ( Amer) 44 Est GFR (Non-Af Amer) 36 POC Glucose (mg/dL) 192 H Random Glucose 124 H Calcium 9.2 Total Bilirubin 0.4 AST 24 ALT 21 Alkaline Phosphatase 52 Total Protein 7.4 Albumin 3.6 Globulin 3.8 Albumin/Globulin Ratio 1.0 10/27/17 10/27/17 10/27/17 06:17 11:41 16:15 WBC RBC Hgb Hct MCV MCH MCHC RDW Plt Count MPV Neut % (Auto) Lymph % (Auto) [place] % (Auto) Eos % (Auto) Baso % (Auto) Neut # (Auto) Lymph # (Auto) [place] # (Auto) Eos # (Auto) Baso # (Auto) PT 10.9 INR 1.0 APTT 35 H Sodium Potassium Chloride Carbon Dioxide Anion Gap BUN Creatinine Est GFR ( Amer) Est GFR (Non-Af Amer) POC Glucose (mg/dL) 178 H 95 Random Glucose Calcium Total Bilirubin AST ALT Alkaline Phosphatase Total Protein Albumin Globulin Albumin/Globulin Ratio EKG/Cardiology Studies: Cardiology / EKG Studies 10/27/17 10:44 EKG [ELECTROCARDIOGRAM] Stat Comment: Mode Of Transportation: Reason For Exam: bradycardic Isolation: Contact Critical Care Progress Note - Nutrition Nutrition: Nutrition Category Date Time Status NPO Diet [DIET] Diets 10/27/17 Lunch Active Attending/Attestation - Attestation I have personally seen and examined this patient.: Yes I have fully participated in the care of the patient.: Yes I have reviewed all pertinent clinical information: Yes Notes (Text): 10/27/17 19:38 patient is planning to have pacemaker. Comfortable. No chest pain Blood pressure is on the high side. We will monitor.
--- NOTE | 2017-10-27 12:11 | RAD ---
HISTORY: sob COMPARISON: 10/23/2017 FINDINGS: LUNGS: No active pulmonary disease. PLEURA: No significant pleural effusion identified, no pneumothorax apparent. CARDIOVASCULAR: Normal. OSSEOUS STRUCTURES: No significant abnormalities. VISUALIZED UPPER ABDOMEN: Normal. OTHER FINDINGS: None. IMPRESSION: No active disease.
--- NOTE | 2017-10-27 12:32 | CARD ---
APPROVED REPORT EKG Measurement Heart [id number] <Conclusion> Sinus bradycardia with occasional premature ventricular complexes ST & T wave abnormality, consider inferolateral ischemia Abnormal ECG
[2017-10-27] MEDS ORDERED: HEPARIN-NS 5,000 UNITS/500 ML 5,000 UNIT/500 ML BAG IV ONE (16:08)
[2017-10-27] MEDS ORDERED: Bacitracin 50,000 UNIT in Sodium Chloride 0.9% Irrig 1,000 ML IR SCH (16:09)
[2017-10-27] MEDS ORDERED: ceFAZolin 1 gm in NS 1 GM/100 ML BAG IVPB ONE (17:42)
[2017-10-27] MEDS ORDERED: Thrombin Topical 5,000 Int Units Spray Kit ONE (17:43)
[2017-10-27] MEDS ORDERED: Lidocaine 1% Inj (20ml) ONE (17:55)
[2017-10-27] MEDS ORDERED: Lactated Ringer's 1,000 ML IV ONE (18:13)
--- NOTE | 2017-10-27 18:21 | CP.PCM.CON ---
History of Present Illness - History of Present Illness History of Present Illness: Admitted with bradycardia and hypotension responsive to fluids an elective cardiac cath showed nonobstructive coronary disease brought to the ICU for monitoring Past med: systemic hypertension, diabetes mellitus Non smoker Exam Afebrile Normal venous pressures clear lungs Normal heart sounds No edema EKG: sinus bradycardia Past Patient History - Infectious Disease Hx of Infectious Diseases: None - Past Medical History & Family History Past Medical History?: Yes - Past Social History Smoking Status: Never Smoked - CARDIAC Hx Cardiac Disorders: Yes Hx Angina: Yes Hx Hypercholesterolemia: Yes Hx Hypertension: Yes - PULMONARY Hx Respiratory Disorders: No - NEUROLOGICAL Hx Neurological Disorder: No - HEENT Hx HEENT Problems: Yes Hx Cataracts: Yes - RENAL Hx Chronic Kidney Disease: No - ENDOCRINE/METABOLIC Hx Endocrine Disorders: Yes Hx Diabetes Mellitus Type 2: Yes - HEMATOLOGICAL/ONCOLOGICAL Hx Blood Disorders: Yes Other/Comment: PT STATES HX BLEEDING AFTER LAST CARDIAC CATH - INTEGUMENTARY Hx Dermatological Problems: No - MUSCULOSKELETAL/RHEUMATOLOGICAL Hx Arthritis: Yes Hx Falls: No Hx Gout: Yes - GASTROINTESTINAL Hx Gastrointestinal Disorders: No - GENITOURINARY/GYNECOLOGICAL Hx Genitourinary Disorders: No - PSYCHIATRIC Hx Psychophysiologic Disorder: No - SURGICAL HISTORY Hx Surgeries: Yes Hx Cardiac Catheterization: Yes (1997) - ANESTHESIA Hx Anesthesia: Yes Hx Anesthesia Reactions: No Hx Malignant Hyperthermia: No Meds Allergies/Adverse Reactions: Allergies Allergy/AdvReac Type Severity Reaction Status Date / Time No Known Allergies Allergy Verified 10/23/17 12:31 - Medications Medications: Current Medications Enoxaparin Sodium (Lovenox) 30 mg SC DAILY [facility] Last Admin: 10/27/17 10:18 Dose: Not Given Insulin Human Regular (Novolin R) 0 unit SC [facility] PRN Reason: Protocol Last Admin: 10/27/17 16:29 Dose: Not Given Pantoprazole Sodium (Protonix Inj) 40 mg IVP DAILY [facility] Last Admin: 10/27/17 10:00 Dose: 40 mg Results - Vital Signs Recent Vital Signs: Last Vital Signs Temp 98.7 F 10/27/17 18:00 Pulse 45 L 10/27/17 18:00 Resp 18 10/27/17 18:00 BP 160/58 H 10/27/17 18:00 Pulse Ox 99 10/27/17 18:00 - Labs Result Diagrams: 10/27/17 06:17 10/27/17 06:13 Labs: Laboratory Results - last 24 hr 10/26/17 10/27/17 10/27/17 21:28 06:13 06:17 WBC 10.0 RBC 3.16 L Hgb 9.4 L Hct 27.7 L MCV 87.7 MCH 29.7 MCHC 33.8 RDW 14.5 Plt Count 351 MPV 10.4 Neut % (Auto) 72.8 Lymph % (Auto) 13.8 L [place] % (Auto) 7.8 Eos % (Auto) 4.2 H Baso % (Auto) 1.4 Neut # (Auto) 7.3 H Lymph # (Auto) 1.4 [place] # (Auto) 0.8 Eos # (Auto) 0.4 Baso # (Auto) 0.1 PT INR APTT Sodium 139 Potassium 4.3 Chloride 103 Carbon Dioxide 25 Anion Gap 16 BUN 59 H Creatinine 1.4 H Est GFR ( Amer) 44 Est GFR (Non-Af Amer) 36 POC Glucose (mg/dL) 192 H Random Glucose 124 H Calcium 9.2 Total Bilirubin 0.4 AST 24 ALT 21 Alkaline Phosphatase 52 Total Protein 7.4 Albumin 3.6 Globulin 3.8 Albumin/Globulin Ratio 1.0 10/27/17 10/27/17 10/27/17 06:17 11:41 16:15 WBC RBC Hgb Hct MCV MCH MCHC RDW Plt Count MPV Neut % (Auto) Lymph % (Auto) [place] % (Auto) Eos % (Auto) Baso % (Auto) Neut # (Auto) Lymph # (Auto) [place] # (Auto) Eos # (Auto) Baso # (Auto) PT 10.9 INR 1.0 APTT 35 H Sodium Potassium Chloride Carbon Dioxide Anion Gap BUN Creatinine Est GFR ( Amer) Est GFR (Non-Af Amer) POC Glucose (mg/dL) 178 H 95 Random Glucose Calcium Total Bilirubin AST ALT Alkaline Phosphatase Total Protein Albumin Globulin Albumin/Globulin Ratio Assessment & Plan - Assessment and Plan (Free Text) Assessment: This patient has had symptomatic episodes of bradyarrhythmia likely sinus There are no obvious clinical reversible factors Currently without hemodynamic instability In absence of an imperative to use an AV enriqueta magalie (heart failure or coronary disease) indications would be directed by symptoms persistence of severe bradycardia during wake hours Plan Thyroid function Monitor x 24 hours - Date & Time Date: 10/25/17 Time: 18:00
--- NOTE | 2017-10-27 18:29 | PCM.OP ---
Operative Report - Operative Report Date of Surgery/Procedure: 10/27/17 Time of Surgery/Procedure: 19:45 Surgeon: dejuan Anesthesia/Sedation: MAC Pre-Operative Diagnosis: Symptomatic sick sinus syndrome Post-Operative Diagnosis: Symptomatic Sick sinus syndrome Indication for Surgery: Symptomatic sick sinus syndrome Operative Findings: A dual chamber permanent pacemaker was implanted Procedure/Operation Description: After informed consent the pateint was brought to the OR in a post absorptive state; temporary pacing pads were placed; next the leftpectoral region was cleansed and prepped in the usual fashion; next 1% lidocaine was administred in the upper right pectoral region; the left axillary vein was accessed twice an a guide wire placed in the right atrium; next a 3 cm incision was made 3 cm inferior to the left clavicle and a pocket created by blunt dissection; next two 7 Fr. sheaths were placed over the guidewire and a 45 cm right ventricular lead placed in the right ventricular apex at sites with appropriate sense and pace parameters; similarly a lead was placed in the right atrial appendage; next the leads were sutured to the pectoral fascia; next the new [employer] generator was introduced in the field and connected to the pacing leads; due to oozing from the muscle surgiseal was used; the pocket was then closed in layers; telfa and tegaderm was placed; pressure dressing was applied. The patient was sent to the ICU in a stable condition with orders for chest xray, cephazolin 1 gm IV x 2 doses and arm sling Estimated Blood Loss: 10cc Complications: None Discharge & Condition: Stable
[2017-10-27] MEDS ORDERED: Midazolam 2 MG/2 ML VIAL ONE (18:32)
[2017-10-27] MEDS ORDERED: HYDROmorphone 0.5 mg/0.5 ml ISec IVP PRN (19:29)
--- NOTE | 2017-10-27 22:50 | CP.PCM.PN ---
Subjective - Date & Time of Evaluation Date of Evaluation: 10/27/17 Time of Evaluation: 19:45 - Subjective Subjective: Patient seen and evaluated S/P PPM Stable Objective - Vital Signs/Intake and Output Vital Signs (last 24 hours): Temp Pulse Resp BP Pulse Ox 98.9 F 60 20 154/59 H 98 10/27/17 20:00 10/27/17 22:06 10/27/17 22:06 10/27/17 22:06 10/27/17 22:06 Intake and Output: 10/27/17 10/28/17 18:59 06:59 Intake Total 840 0 Output Total 450 0 Balance 390 0 - Medications Medications: Current Medications Enoxaparin Sodium (Lovenox) 30 mg SC DAILY [facility] Last Admin: 10/27/17 10:18 Dose: Not Given Insulin Human Regular (Novolin R) 0 unit SC [facility] PRN Reason: Protocol Last Admin: 10/27/17 21:13 Dose: Not Given Pantoprazole Sodium (Protonix Inj) 40 mg IVP DAILY [facility] Last Admin: 10/27/17 10:00 Dose: 40 mg - Labs Labs: 10/27/17 06:17 10/27/17 06:13 PT 10.9 SECONDS (9.7-12.2) 10/27/17 06:17 INR 1.0 10/27/17 06:17 APTT 35 SECONDS (21-34) H 10/27/17 06:17
[2017-10-27] MEDS: Oxycodone/Acetaminophen 5/325 mg Tab PO PRN (23:57)
[2017-10-28] MEDS: Oxycodone/Acetaminophen 5/325 mg Tab PO PRN ×2 (04:42→09:29)
[2017-10-28 06:24] LABS: BASO % 0.2 % (0.0-2.0); HEMOGLOBIN 8.6 g/dL (11.0-16.0); LYMPH # 0.6 K/uL (1.0-4.3); LYMPH % 5.6 % (20.0-40.0); MEAN CELL VOLUME 86.2 fL (81.0-99.0); MEAN CORPUSCULAR HEMOGLOBIN 28.2 pg (27.0-31.0); MEAN CORPUSCULAR HGB CONC 32.7 g/dL (33.0-37.0); MEAN PLATELET VOLUME 9.8 fL (7.2-11.7); MONO # 0.9 K/uL (0.0-0.8); MONO % 7.8 % (0.0-10.0); NEUT # 9.9 K/uL (1.8-7.0); NEUT % 86.4 % (50.0-75.0); PLATELET COUNT 312 K/uL (130-400); RBC 3.07 Mil/uL (3.80-5.20); RED CELL DISTRIBUTION WIDTH 14.8 % (11.5-14.5); WHITE BLOOD COUNT 11.4 K/uL (4.8-10.8)
[2017-10-28 06:42] LABS: ALBUMIN 3.5 g/dL (3.5-5.0); CALCIUM 8.7 mg/dl (8.6-10.4); MAGNESIUM 1.7 mg/dL (1.6-2.3)
[2017-10-28] MEDS: (Novolin R) Insulin Human Regular 100 units/ml vial SC SCH ×4 (08:18→21:43)
--- NOTE | 2017-10-28 08:59 | CP.PCM.PN ---
Subjective - Date & Time of Evaluation Date of Evaluation: 10/28/17 Time of Evaluation: 08:30 - Subjective Subjective: Pt did sleep the whole night c/o pain on R foot. (+) radiates to leg. No unusual chest pain exc surgical site, min cough, no SOB, no palpitation. No n/v, no diarrhea, no dysuria, (+) no appettie c/o pain Objective - Vital Signs/Intake and Output Vital Signs (last 24 hours): Temp Pulse Resp BP Pulse Ox 98.7 F 60 13 186/65 H 98 10/28/17 07:30 10/28/17 08:21 10/28/17 08:21 10/28/17 08:21 10/28/17 08:21 Intake and Output: 10/28/17 10/28/17 06:59 18:59 Intake Total 320 0 Output Total 550 Balance -230 0 - Medications Medications: Current Medications Colchicine (Colocrys) 0.6 mg PO DAILY [facility] Enoxaparin Sodium (Lovenox) 30 mg SC DAILY [facility] Last Admin: 10/27/17 10:18 Dose: Not Given Insulin Human Regular (Novolin R) 0 unit SC ACHS [facility] PRN Reason: Protocol Last Admin: 10/27/17 21:13 Dose: Not Given Oxycodone/Acetaminophen (Percocet 5/325 Mg Tab) 1 tab PO Q4H PRN PRN Reason: Pain, moderate (4-7) Stop: 10/30/17 23:52 Last Admin: 10/28/17 04:42 Dose: 1 tab Pantoprazole Sodium (Protonix Inj) 40 mg IVP DAILY [facility] Last Admin: 10/27/17 10:00 Dose: 40 mg Prednisolone (Prednisolone) 30 mg 0.5 mg/kg (30 mg) PO Q12 [facility] Stop: 10/30/17 23:59 - Labs Labs: 10/28/17 06:17 10/28/17 06:16 PT 10.9 SECONDS (9.7-12.2) 10/27/17 06:17 INR 1.0 10/27/17 06:17 APTT 35 SECONDS (21-34) H 10/27/17 06:17 - Constitutional Appears: No Acute Distress - Eye Exam Eye Exam: Normal appearance - ENT Exam ENT Exam: Mucous Membranes Moist - Neck Exam Neck Exam: Full ROM. absent: Lymphadenopathy, Thyromegaly - Respiratory Exam Respiratory Exam: Clear to Ausculation Bilateral. absent: Rales, Rhonchi, Wheezes - Cardiovascular Exam Cardiovascular Exam: +S1, +S2. absent: Gallop, REGULAR RHYTHM - GI/Abdominal Exam GI & Abdominal Exam: Soft. absent: Tenderness, Mass - Extremities Exam Extremities Exam: absent: Calf Tenderness, Joint Swelling ((+) R foot w/ no swelling nor redness but pain with minimal movement) Assessment and Plan - Assessment and Plan (Free Text) Assessment: Acute Gout - right foot Beadycardia s/ PM placement HTN, NIDDM Cont meds/ Add Colcryx - mths and prednisone x 2 days Cont meds
[2017-10-28 09:26] LABS: BANDS 2 % (0-2); BASOPHIL 1 % (0-2); LYMPHOCYTE 5 % (20-40); MONOCYTE 6 % (0-10); NEUTROPHIL 86 % (50-75); PLATELET ESTIMATE NORMAL (NORMAL); TOTAL CELLS COUNTED 100
[2017-10-28 09:27] LABS: HYPOCHROMIC SLIGHT
[2017-10-28] MEDS: Enoxaparin 30 mg Syringe SC SCH (09:29)
[2017-10-28] MEDS: PrednisoLONE 6 MG/2 ML SYR PO SCH ×2 (10:53→21:44)
[2017-10-28] MEDS ORDERED: Pneumococcal 23-Valent Vaccine IM ONE (13:00)
[2017-10-28] MEDS ORDERED: Naproxen 275 mg Tab PO PRN (14:00)
--- NOTE | 2017-10-28 17:07 | RAD ---
PROCEDURE: HISTORY: COMPARISON: None TECHNIQUE: Total fluoroscopic time utilized during the procedure: 14299.1 ; 1.09 mGy cm 2 FINDINGS: Submitted images from the current procedure: 7 Please refer to the physician's notes performing the procedure. IMPRESSION: Less than 1 hour fluoroscopic time utilized during performance of the procedure
[2017-10-28 22:04] VITALS: PULSE 60
[2017-10-29] MEDS: (Novolin R) Insulin Human Regular 100 units/ml vial SC SCH ×4 (08:00→22:00)
--- NOTE | 2017-10-29 09:18 | CP.PCM.PN ---
<Marilee Stapleton - Last Filed: 10/29/17 09:15> Subjective - Date & Time of Evaluation Date of Evaluation: 10/29/17 Time of Evaluation: 09:00 - Subjective Subjective: Cardiology progress note for Dr. Baugh: Patient seen and examined at bedside this morning. She denies chest pain, palpitations, SOB, dizziness. She states that her primary came by today and said he was going to keep her in the hospital for more physical therapy to help her walk. She is having difficulties at this time. She is otherwise stable from cardiology perspective. Objective - Vital Signs/Intake and Output Vital Signs (last 24 hours): Temp Pulse Resp BP Pulse Ox 98.4 F 60 19 172/63 H 100 10/28/17 20:00 10/29/17 06:00 10/29/17 06:00 10/29/17 05:52 10/29/17 06:00 Intake and Output: 10/29/17 10/29/17 06:59 18:59 Intake Total 900 Output Total 900 Balance 0 - Medications Medications: Current Medications Amlodipine Besylate (Norvasc) 10 mg PO DAILY [facility] Colchicine (Colocrys) 0.6 mg PO DAILY [facility] Last Admin: 10/28/17 10:53 Dose: 0.6 mg Enoxaparin Sodium (Lovenox) 30 mg SC DAILY [facility] Last Admin: 10/28/17 09:29 Dose: 30 mg Hydralazine HCl (Apresoline) 25 mg PO TID [facility] Last Admin: 10/28/17 17:44 Dose: 25 mg Insulin Human Regular (Novolin R) 0 unit SC ACHS [facility] PRN Reason: Protocol Last Admin: 10/29/17 08:00 Dose: 1 unit Naproxen (Anaprox) 275 mg PO BID PRN Last Admin: 10/28/17 14:15 Dose: 275 mg Oxycodone/Acetaminophen (Percocet 5/325 Mg Tab) 1 tab PO Q4H PRN PRN Reason: Pain, moderate (4-7) Stop: 10/30/17 23:52 Last Admin: 10/28/17 09:29 Dose: 1 tab Pantoprazole Sodium (Protonix Inj) 40 mg IVP DAILY [facility] Last Admin: 10/28/17 09:31 Dose: 40 mg Prednisolone (Prednisolone) 30 mg 0.5 mg/kg (30 mg) PO Q12 [facility] Stop: 10/30/17 23:59 Last Admin: 10/28/17 21:44 Dose: 30 mg - Labs Labs: 10/28/17 06:17 10/28/17 06:16 PT 10.9 SECONDS (9.7-12.2) 10/27/17 06:17 INR 1.0 10/27/17 06:17 APTT 35 SECONDS (21-34) H 10/27/17 06:17 - Constitutional Appears: Non-toxic, No Acute Distress - Head Exam Head Exam: ATRAUMATIC, NORMAL INSPECTION - Eye Exam Eye Exam: EOMI - ENT Exam ENT Exam: Mucous Membranes Moist - Respiratory Exam Respiratory Exam: Clear to Ausculation Bilateral, NORMAL BREATHING PATTERN. absent: Respiratory Distress - Cardiovascular Exam Cardiovascular Exam: REGULAR RHYTHM Additional comments: paced at 60, pacemaker site covered dressing c/d/i, no signs of infection - GI/Abdominal Exam GI & Abdominal Exam: Soft, Normal Bowel Sounds. absent: Distended, Firm, Guarding, Tenderness - Extremities Exam Extremities Exam: Normal Inspection - Back Exam Back Exam: NORMAL INSPECTION - Neurological Exam Neurological Exam: Alert, Awake, Oriented x3 - Psychiatric Exam Psychiatric exam: Normal Affect, Normal Mood - Skin Skin Exam: Dry, Normal Color, Warm Assessment and Plan - Assessment and Plan (Free Text) Assessment: S/P pacemaker placement for bradycardia Site dressing in place c/d/i, non tender, no signs of infection afebrile Paced at 60 bpm No ches pain/palpitations Patient is stable for DC home She is to follow up wit Dr. Baugh in one week outpatient Discussed with Dr. Baugh <Kiel Baugh - Last Filed: 10/29/17 22:10> Objective - Vital Signs/Intake and Output Vital Signs (last 24 hours): Temp Pulse Resp BP Pulse Ox 98.7 F 60 16 126/60 98 10/29/17 16:00 10/29/17 20:00 10/29/17 20:00 10/29/17 19:52 10/29/17 18:00 Intake and Output: 10/29/17 10/30/17 18:59 06:59 Intake Total 400 Output Total 500 Balance -100 - Medications Medications: Current Medications Amlodipine Besylate (Norvasc) 10 mg PO DAILY [facility] Last Admin: 10/29/17 09:35 Dose: 10 mg Colchicine (Colocrys) 0.6 mg PO DAILY [facility] Last Admin: 10/29/17 09:38 Dose: 0.6 mg Enoxaparin Sodium (Lovenox) 30 mg SC DAILY [facility] Last Admin: 10/29/17 09:34 Dose: 30 mg Hydralazine HCl (Apresoline) 25 mg PO TID [facility] Last Admin: 10/29/17 17:53 Dose: 25 mg Insulin Human Regular (Novolin R) 0 unit SC ACHS [facility] PRN Reason: Protocol Last Admin: 10/29/17 15:30 Dose: 3 unit Oxycodone/Acetaminophen (Percocet 5/325 Mg Tab) 1 tab PO Q4H PRN PRN Reason: Pain, moderate (4-7) Stop: 10/30/17 23:52 Last Admin: 10/28/17 09:29 Dose: 1 tab Pantoprazole Sodium (Protonix Inj) 40 mg IVP DAILY [facility] Last Admin: 10/29/17 09:33 Dose: 40 mg Prednisolone (Prednisolone) 30 mg 0.5 mg/kg (30 mg) PO Q12 [facility] Stop: 10/30/17 23:59 Last Admin: 10/29/17 09:40 Dose: 30 mg - Labs Labs: 10/29/17 12:15 10/29/17 12:15 PT 10.9 SECONDS (9.7-12.2) 10/27/17 06:17 INR 1.0 10/27/17 06:17 APTT 35 SECONDS (21-34) H 10/27/17 06:17 Assessment and Plan - Assessment and Plan (Free Text) Plan: Patient seen and evaluated personally by me. Plan of care discussed with the medical office rep Plan of care as documented
--- NOTE | 2017-10-29 09:22 | CP.PCM.PN ---
Subjective - Date & Time of Evaluation Date of Evaluation: 10/29/17 Time of Evaluation: 08:40 - Subjective Subjective: Pt no complain and want to go home. pain on right foot knee is brandt aug 09. No diarrhea, no n/v, no CP, no SOB, no edema. ,o palpitation no dizziness Objective - Vital Signs/Intake and Output Vital Signs (last 24 hours): Temp Pulse Resp BP Pulse Ox 98.4 F 60 19 172/63 H 100 10/28/17 20:00 10/29/17 06:00 10/29/17 06:00 10/29/17 05:52 10/29/17 06:00 Intake and Output: 10/29/17 10/29/17 06:59 18:59 Intake Total 900 Output Total 900 Balance 0 - Medications Medications: Current Medications Amlodipine Besylate (Norvasc) 10 mg PO DAILY [facility] Colchicine (Colocrys) 0.6 mg PO DAILY [facility] Last Admin: 10/28/17 10:53 Dose: 0.6 mg Enoxaparin Sodium (Lovenox) 30 mg SC DAILY [facility] Last Admin: 10/28/17 09:29 Dose: 30 mg Hydralazine HCl (Apresoline) 25 mg PO TID [facility] Last Admin: 10/28/17 17:44 Dose: 25 mg Insulin Human Regular (Novolin R) 0 unit SC ACHS [facility] PRN Reason: Protocol Last Admin: 10/29/17 08:00 Dose: 1 unit Oxycodone/Acetaminophen (Percocet 5/325 Mg Tab) 1 tab PO Q4H PRN PRN Reason: Pain, moderate (4-7) Stop: 10/30/17 23:52 Last Admin: 10/28/17 09:29 Dose: 1 tab Pantoprazole Sodium (Protonix Inj) 40 mg IVP DAILY [facility] Last Admin: 10/28/17 09:31 Dose: 40 mg Prednisolone (Prednisolone) 30 mg 0.5 mg/kg (30 mg) PO Q12 [facility] Stop: 10/30/17 23:59 Last Admin: 10/28/17 21:44 Dose: 30 mg - Labs Labs: 10/28/17 06:17 10/28/17 06:16 PT 10.9 SECONDS (9.7-12.2) 10/27/17 06:17 INR 1.0 10/27/17 06:17 APTT 35 SECONDS (21-34) H 10/27/17 06:17 - Constitutional Appears: No Acute Distress - Eye Exam Eye Exam: Normal appearance - ENT Exam ENT Exam: Mucous Membranes Moist - Neck Exam Neck Exam: Full ROM. absent: Lymphadenopathy, Thyromegaly - Respiratory Exam Respiratory Exam: Decreased Breath Sounds. absent: Rhonchi, Wheezes - Cardiovascular Exam Cardiovascular Exam: +S1, +S2, Murmur. absent: Gallop, REGULAR RHYTHM, JVD - GI/Abdominal Exam GI & Abdominal Exam: Soft. absent: Tenderness, Mass - Extremities Exam Extremities Exam: Calf Tenderness, Pedal Edema. absent: Joint Swelling, Normal Capillary Refill Assessment and Plan - Assessment and Plan (Free Text) Assessment: HTN, NIDDM, Usteady Gait 2 recent gout s/p P M placement Cont meds/ lasix x 1 Stop naprosyn
[2017-10-29] MEDS: Enoxaparin 30 mg Syringe SC SCH (09:34)
[2017-10-29] MEDS: PrednisoLONE 6 MG/2 ML SYR PO SCH ×2 (09:40→23:00)
[2017-10-29 12:18] LABS: BASO % 0.2 % (0.0-2.0); HEMOGLOBIN 9.6 g/dL (11.0-16.0); LYMPH # 0.6 K/uL (1.0-4.3); LYMPH % 3.8 % (20.0-40.0); MEAN CELL VOLUME 87.3 fL (81.0-99.0); MEAN CORPUSCULAR HEMOGLOBIN 28.9 pg (27.0-31.0); MEAN CORPUSCULAR HGB CONC 33.1 g/dL (33.0-37.0); MEAN PLATELET VOLUME 9.6 fL (7.2-11.7); MONO # 0.5 K/uL (0.0-0.8); NEUT # 14.7 K/uL (1.8-7.0); PLATELET COUNT 312 K/uL (130-400); RBC 3.32 Mil/uL (3.80-5.20); RED CELL DISTRIBUTION WIDTH 14.7 % (11.5-14.5); WHITE BLOOD COUNT 15.8 K/uL (4.8-10.8)
[2017-10-29 12:35] LABS: ALBUMIN 3.7 g/dL (3.5-5.0); CALCIUM 9.6 mg/dl (8.6-10.4)
[2017-10-29 12:49] LABS: BANDS 4 % (0-2); LYMPHOCYTE 3 % (20-40); NEUTROPHIL 93 % (50-75); PLATELET ESTIMATE NORMAL (NORMAL); TOTAL CELLS COUNTED 100
[2017-10-29] MEDS: Oxycodone/Acetaminophen 5/325 mg Tab PO PRN (23:05)
[2017-10-30 00:07] VITALS: TEMP 98.3
[2017-10-30 04:37] VITALS: BP 160/62; RESP 14
[2017-10-30 06:43] LABS: HEMOGLOBIN 9.3 g/dL (11.0-16.0); MEAN CELL VOLUME 86.3 fL (81.0-99.0); MEAN CORPUSCULAR HGB CONC 33.6 g/dL (33.0-37.0); MEAN PLATELET VOLUME 10.8 fL (7.2-11.7); RBC 3.21 Mil/uL (3.80-5.20); RED CELL DISTRIBUTION WIDTH 14.7 % (11.5-14.5); WHITE BLOOD COUNT 14.5 K/uL (4.8-10.8)
[2017-10-30] MEDS: Enoxaparin 30 mg Syringe SC SCH (09:19)
[2017-10-30] MEDS: (Novolin R) Insulin Human Regular 100 units/ml vial SC SCH (09:20)
[2017-10-30] MEDS: PrednisoLONE 6 MG/2 ML SYR PO SCH (09:21)
[2017-10-30] MEDS: Oxycodone/Acetaminophen 5/325 mg Tab PO PRN (09:21)
--- NOTE | 2017-10-30 12:58 | CP.PCM.DIS ---
Provider - Provider Date of Admission: 10/24/17 11:37 Attending physician: Tyler Quiroz MD 10-30-2017 Time Spent in preparation of Discharge (in minutes): 30 Diagnosis - Discharge Diagnosis (1) Bradycardia Status: Acute (2) CAD (coronary artery disease) Status: Acute (3) Diabetes Status: Chronic (4) HTN (hypertension) Status: Chronic (5) Gout attack Status: Acute Hospital Course - Lab Results Lab Results: Micro Results 10/24/17 20:08 Naris MRSA Culture (Admit) - Final Most Recent Lab Values WBC 14.5 K/uL (4.8-10.8) H 10/30/17 06:36 RBC 3.21 Mil/uL (3.80-5.20) L 10/30/17 06:36 Hgb 9.3 g/dL (11.0-16.0) L 10/30/17 06:36 Hct 27.7 % (34.0-47.0) L 10/30/17 06:36 MCV 86.3 fL (81.0-99.0) 10/30/17 06:36 MCH 29.0 pg (27.0-31.0) 10/30/17 06:36 MCHC 33.6 g/dL (33.0-37.0) 10/30/17 06:36 RDW 14.7 % (11.5-14.5) H 10/30/17 06:36 Plt Count 321 K/uL (130-400) 10/30/17 06:36 MPV 10.8 fL (7.2-11.7) 10/30/17 06:36 Neut % (Auto) 93.0 % (50.0-75.0) H 10/29/17 12:15 Lymph % (Auto) 3.8 % (20.0-40.0) L 10/29/17 12:15 [place] % (Auto) 3.0 % (0.0-10.0) 10/29/17 12:15 Eos % (Auto) 0.0 % (0.0-4.0) 10/29/17 12:15 Baso % (Auto) 0.2 % (0.0-2.0) 10/29/17 12:15 Neut # (Auto) 14.7 K/uL (1.8-7.0) H 10/29/17 12:15 Lymph # (Auto) 0.6 K/uL (1.0-4.3) L 10/29/17 12:15 [place] # (Auto) 0.5 K/uL (0.0-0.8) 10/29/17 12:15 Eos # (Auto) 0.0 K/uL (0.0-0.7) 10/29/17 12:15 Baso # (Auto) 0.0 K/uL (0.0-0.2) 10/29/17 12:15 Neutrophils % (Manual) 93 % (50-75) H 10/29/17 12:15 Band Neutrophils % 4 % (0-2) H 10/29/17 12:15 Lymphocytes % (Manual) 3 % (20-40) L 10/29/17 12:15 Monocytes % (Manual) TEST NOT PERFORMED 10/29/17 12:15 Basophils % (Manual) 1 % (0-2) 10/28/17 06:17 Platelet Estimate Normal (NORMAL) 10/29/17 12:15 RBC Morphology Normal 10/29/17 12:15 Hypochromasia (manual) Slight 10/28/17 06:17 PT 10.9 SECONDS (9.7-12.2) 10/27/17 06:17 INR 1.0 10/27/17 06:17 APTT 35 SECONDS (21-34) H 10/27/17 06:17 Sodium 132 mmol/L (132-148) 10/29/17 12:15 Potassium 4.9 mmol/L (3.6-5.2) 10/29/17 12:15 Chloride 92 mmol/L (98-107) L 10/29/17 12:15 Carbon Dioxide 25 mmol/L (22-30) 10/29/17 12:15 Anion Gap 19 (10-20) 10/29/17 12:15 BUN 48 mg/dL (7-17) H 10/29/17 12:15 Creatinine 1.2 mg/dL (0.7-1.2) 10/29/17 12:15 Est GFR ( Amer) 53 10/29/17 12:15 Est GFR (Non-Af Amer) 43 10/29/17 12:15 POC Glucose (mg/dL) 367 mg/dL (65-110) H 10/30/17 11:29 Random Glucose 314 mg/dL (65-105) H 10/29/17 12:15 Hemoglobin A1c 7.0 % (4.2-6.5) H 10/25/17 06:21 Calcium 9.6 mg/dl (8.6-10.4) 10/29/17 12:15 Phosphorus 3.7 mg/dL (2.5-4.5) 10/28/17 06:16 Magnesium 1.7 mg/dL (1.6-2.3) 10/28/17 06:16 Total Bilirubin 0.3 mg/dL (0.2-1.3) 10/29/17 12:15 AST 21 U/L (14-36) 10/29/17 12:15 ALT 7 U/L (9-52) L D 10/29/17 12:15 Alkaline Phosphatase 60 U/L (38-126) 10/29/17 12:15 Total Protein 7.5 g/dL (6.3-8.3) 10/29/17 12:15 Albumin 3.7 g/dL (3.5-5.0) 10/29/17 12:15 Globulin 3.8 gm/dL (2.2-3.9) 10/29/17 12:15 Albumin/Globulin Ratio 1.0 (1.0-2.1) 10/29/17 12:15 Free T4 1.34 ng/dL (0.78-2.19) 10/25/17 06:22 TSH 3rd Generation 3.67 mIU/L (0.46-4.68) 10/25/17 06:22 Stool Occult Blood Negative (NEGATIVE) 10/29/17 17:44 - Hospital Course Hospital Course: Admitted ICU. Seen by Cardiology Dr. Baugh. Pacemaker inserted for symptomatic bradycardia. C/o dizzyness and almost passing out. During hospital stay had gout attack and difficulties walking. - Date & Time of H&P Date of H&P: 10/30/17 Time of H&P: 12:57 Discharge Exam - Head Exam Head Exam: ATRAUMATIC, NORMAL INSPECTION - Eye Exam Eye Exam: Normal appearance Pupil Exam: NORMAL ACCOMODATION - ENT Exam ENT Exam: Normal Exam - Neck Exam Neck exam: Normal Inspection - Respiratory Exam Respiratory Exam: NORMAL BREATHING PATTERN - Cardiovascular Exam Cardiovascular Exam: REGULAR RHYTHM - GI/Abdominal Exam GI & Abdominal Exam: Normal Bowel Sounds - Rectal Exam Rectal Exam: Deferred - Extremities Exam Extremities exam: joint swelling Discharge Plan - Follow Up Plan Condition: GOOD Disposition: HOME/ ROUTINE Instructions: High Blood Pressure (DC), Pacemaker Insertion (DC), Bradycardia ( DC), Diabetes Type 2 (DC), Coronary Heart Disease (DC), Pacemakers, Pacemaker Check, Hypertension (DC), Hypertension (GEN) Additional Instructions: Discarge home. Continue medications at home. F/u after 1 week. Spoke to nurse. Request physical and nursing evaluation.
[2017-10-30 15:07] VITALS: O2SAT 100
== END 2017-10-30 13:47 | disposition home or self-care (01) | DRG 259 ==
LOC: C.SPRAD 08:11 → C.CATHLAB 08:11 → C.9S 11:37 → C.9I 13:38
PROVIDERS: ADMIT Internal Medicine; ATTEND Internal Medicine
PROC: 4A023N7 Measurement of Cardiac Sampling and Pressure, Left Heart, Percutaneous Approach (ICD-10-PCS; 2017-10-24)
PROC: B211YZZ Fluoroscopy of Multiple Coronary Arteries using Other Contrast (ICD-10-PCS; 2017-10-24)
PROC: B215YZZ Fluoroscopy of Left Heart using Other Contrast (ICD-10-PCS; 2017-10-24)
PROC: 0JH636Z Insertion of Pacemaker, Dual Chamber into Chest Subcutaneous Tissue and Fascia, Percutaneous Approach (ICD-10-PCS; principal; 2017-10-27 16:30)
DX: I49.5 Sick sinus syndrome (principal); I95.9 Hypotension, unspecified; E11.9 Type 2 diabetes mellitus without complications; R00.1 Bradycardia, unspecified; I25.10 Atherosclerotic heart disease of native coronary artery without angina pectoris; I10 Essential (primary) hypertension; E78.00 Pure hypercholesterolemia, unspecified; M10.9 Gout, unspecified